=== PATIENT | female | born 1960 | race Caucasian/White ===

== ENCOUNTER 2017-06-19 06:47 | Inpatient (IN) | payer OTHER ==
[2017-06-08 10:38] LABS: HEMATOCRIT 41.7 % (37.0-47.0); MCH 30.2 pg (26.0-34.0); MCHC 33.5 g/dL (28.0-37.0); MCV 90.2 fL (80.0-100.0); MPV 8.1 fl. (7.2-11.1); RBC 4.63 mil/uL (4.20-5.00); WBC 7.9 thou/uL (4.0-11.0)
[2017-06-08 10:45] LABS: APTT 28.9 Seconds (25.0-31.3); PROTIME 9.7 Seconds (9.20-11.50)
[2017-06-08 10:48] LABS: ALBUMIN 3.9 g/dL (3.4-5.0); CALCIUM 9.1 mg/dL (8.5-10.1); CREATININE 0.8 mg/dL (0.6-1.3); POTASSIUM 3.7 mmol/L (3.5-5.1); TOTAL BILIRUBIN 0.4 mg/dL (<0.1-1.0); TOTAL PROTEIN 7.4 g/dL (6.4-8.2)
[2017-06-09 03:15] LABS: GLYCOHEMOGLOBIN (HGB A1C) 4.7 % (4.8-5.6)
[~2017-06-19] VITALS: Ht 157.5 cm; Wt 104.3 kg
[~2017-06-19 06:47] MED LIST: IBUPROFEN 800800 M1 PO; NORCO 5-325 TA1 EACH PO
[2017-06-19 07:00] VITALS: BP 157/75
[2017-06-19 13:19] VITALS: BP 141/88
--- NOTE | 2017-06-19 13:25 | NUR ---
PATIENT TRANSFERRED FROM PACU TO ROOM 114. ALERT AND ORIENTED. DENIES PAIN. O2 SAT 97% PER CONT PULSE OX. TOLERATING LIQUIDS. LUNCH ORDERED. DRESSING TO RIGHT KNEE DRY AND INTACT. SCD'S IN PLACE. TEDS TO LEFT LEG. VSS. DAUGHTER IN LAW AT BEDSIDE. EDUCATED ON FALL PREVENTION. BED ALARM SET. WILL CONTINUE TO MONITOR.
[2017-06-19 15:44] VITALS: BP 140/50
--- NOTE | 2017-06-19 16:55 | NUR ---
PATIENT REMAINS ALERT AND ORIENTED. REPORTS SLIGHT DISCOMFORT IN KNEE BUT NO PAIN, PATIENT HAD SPINAL AND NERVE BLOCK. ENCOURAGED TO TAKE OXYIR SO WE COULD STAY AHEAD OF PAIN. OXYIR 5MG GIVEN AT THIS TIME. TOLERATING MEALS. STANLEY IN PLACE WITH LIGHT YELLOW URINE. SCD'S AND ROSY IN PLACE. DRESSING TO KNEE DRY AND INTACT. BED ALARM SET. WILL CONTINUE TO MONITOR.
[2017-06-19 21:25] VITALS: BP 131/71
[2017-06-20 00:29] VITALS: BP 122/69
--- NOTE | 2017-06-20 04:34 | NUR ---
PATIENT ALERT AND ORIENTED. VITALS STABLE. DESATS WHEN SLEEPING. PLACED ON 3L OF OXYGEN, CONTINUOUS PULSE OX IN PLACE. PAIN CONTROLLED WITH PO MEDICATION. STANLEY TO DEPENDENT DRAINAGE, DRAINING LIGHT YELLOW URINE. RIGHT KNEE DRESSING C/D/I. FLUIDS INFUSING PER ORDER. DENIES NAUSEA. BED ALARM IN USE. HOURLY ROUNDS. NURSING WILL CONTINUE TO MONITOR.
[2017-06-20 04:45] LABS: HEMATOCRIT 33.3 % (37.0-47.0); HEMOGLOBIN 11.4 gm/dL (12.0-15.0)
[2017-06-20 05:14] VITALS: BP 119/71
[2017-06-20 08:31] VITALS: BP 124/62
--- NOTE | 2017-06-20 09:20 | NUR ---
RECIEVED O.T. EVAL AND TX. WILL DEFER TO P.T. AND NURSING. PLEASE ORDER FURTHER O.T. SERVICES IF NEEDED.
--- NOTE | 2017-06-20 16:00 | NUR ---
CM UNABLE TO SEE PT.TODAY. WILL SEE IN AM.
[2017-06-20 16:11] VITALS: BP 118/56
--- NOTE | 2017-06-20 16:34 | NUR ---
PATIENT REMAINS ALERT AND ORIENTED. PAIN CONTROLLED WITH OXYIR. PARTICIPTAED WITH PT. TRANSFERS AND AMBULATES WITH STANDBY ASSIST,GB, AND WALKER. VOIDING PER BSC. IV SALINE LOCKED. RA SAT 98%. TEDS AND SCD'S IN PLACE. TOLERATING MEALS. CALL LIGHT WITHIN REACH. WILL CONTINUE TO MONITIOR.
[2017-06-20 18:01] VITALS: BP 118/56
[2017-06-20 20:20] VITALS: BP 143/82
[2017-06-21 00:44] VITALS: BP 149/75
[2017-06-21 04:01] LABS: HEMATOCRIT 32.6 % (37.0-47.0); HEMOGLOBIN 11.2 gm/dL (12.0-15.0)
[2017-06-21 04:36] VITALS: BP 145/82
--- NOTE | 2017-06-21 05:37 | NUR ---
PATIENT HAS RESTED WELL THROUGHOUT THE NIGHT WITHOUT ANY ISSUES. PAIN WELL CONTROLLED. VSS ON RA. PATIENT IS UP WITH ASSIST X 1 WITH WALKER AND GAITBELT TO THE BSC. PATIENT IS URINATING ADEQUATELY. DRESSING TO RIGHT KNEE IS C/D/I, ROSY HOSE AND SCD'S IN PLACE. PATIENT INSTRUCTED TO USE CALL LIGHT WHEN NEEDING ASSISTANCE. HOURLY ROUNDS MADE. WILL CONTINUE WITH PLAN OF CARE AND NURSING TO MONITOR.
[2017-06-21 07:35] VITALS: BP 151/86
[2017-06-21] MEDS ORDERED: NEURONTIN 300300 M1 PO (08:39)
[2017-06-21] MEDS ORDERED: COLACE 100 MG100 MG PO (08:39)
--- NOTE | 2017-06-21 12:00 | NUR ---
PT.UP IN CHAIR. SHE WAS ALERT AND ORIENTED. SHE SAID SHE LIVES ALONE. HER FAMILY IS SUPPORTIVE. HER MOM WILL BE COMING TO STAY WITH HER FOR THE FIRST FEW DAYS. SHE IS HOPEFUL SHE WILL STAY THE FULL 2 WEEKS WITH HER. HER SON WORKS CLOSE TO HER AND SHE KNOWS HE WILL CHECK ON HER,ALSO. SHE WILL NEED A WALKER FOR HOME. 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 DISCUSSED HOME HEALTH VS.OUTPT.THERAPY. SHE WOULD LIKE TO DO HH INITIALLY. SHE CHOSE [facility] FOR HH. REFERRAL MADE TO [facility] AND THEY WILL ACCEPT HER. PT.SAID SHE WILL NOT HAVE HELP AT HOME UNTIL TOMORROW. PLAN ON DISCHARGE TOMORROW.
[2017-06-21 12:41] VITALS: BP 153/77
--- NOTE | 2017-06-21 14:49 | NUR ---
Agree with student nurse, Jannet Sanchez's documentation
[2017-06-21 15:43] VITALS: BP 145/81
--- NOTE | 2017-06-21 17:24 | NUR ---
PATIENT REMAINS ALERT AND ORIENTED. DENIES PAIN. PARTICIPATED WITH PT. SHOWERED THIS AM. TRANSFERS AND AMBULATES WITH ASSIST OF 1,GB,WALKER. DRESSING DRY AND INTACT. PLANS TO DC TOMORROW WHEN SISTER CAN STAY WITH HER. PAIN CONTROLLED WITH OXYIR. UP TO CHAIR. VOIDING PER BSC. BED ALARM IN USE. CALL LIGHT WITHIN REACH. WILL CONTINUE TO MONITOR.
[2017-06-21 20:45] VITALS: BP 136/79
--- NOTE | 2017-06-22 04:55 | NUR ---
PATIENT HAS REMAINED ALERT AND ORIENTED X 4 THROUGHOUT THE SHIFT AND RESTING QUIETLY ON HOURLY ROUNDS. DRESSING CLEAN AND DRY RIGHT KNEE. MEDICATED FOR PAIN X 1 TO GOOD EFFECT. UP TO BR TO VOID. PASSING GAS. MILK OF MAGNESIA AT BEDSIDE. VITAL SIGNS STABLE. CONTINUE TO MONITOR.
[2017-06-22 06:00] VITALS: BP 114/70
[2017-06-22 08:15] VITALS: BP 135/78
--- NOTE | 2017-06-22 10:27 | NUR ---
CALLED IN PRESCRIPTION FOR ELIQUIS WRITTEN TO [facility] [phone]. WILL CALL BACK IN ONE HR.FOR COPAY.
--- NOTE | 2017-06-22 12:05 | NUR ---
COPAY FOR SHELBI PER PHARMACY IS $25. INFORMED PT. SHE IS PACKING . FAMILY HERE. THERAPY DISPENSED HER WALKER AND IN ROOM. INFORMED HER NURSE WAS WORKING ON HER DISCHARGE INSTRUCTIONS.
[2017-06-22 12:07] VITALS: BP 118/56
[2017-06-22] MEDS ORDERED: ELIQUIS2.5 MG PO (12:13)
[2017-06-22] MEDS ORDERED: ASPIRIN325 PO (12:14)
[2017-06-22] MEDS ORDERED: IBUPROFEN 800800 M1 PO (12:24)
[2017-06-22] MEDS ORDERED: OXYCODONE HCL 55 MG PO (12:26)
--- NOTE | 2017-06-22 12:31 | S ---
[address] [address] SURGICAL PATH RPT PROCEDURE Name: LIZY MARCOS Room: [address] IN M.R.#: [id number] Admission: 06/19/17 Date of : 60 Discharge: Report #: [id number] Path Case #: [id number] PATHOLOGY REPORT COLLECTION DATE: 06/19/2017 RECEIVED DATE: 06/19/2017 SUBMITTING PHYS: Dr. Christofer Lynn OTHER PHYS: Dr. Alexis Huston SPECIMEN(S) RECEIVED: A.R knee bone * * * * * * * * * * * * FINAL DIAGNOSIS: Bone right knee, total knee replacement: - Benign meniscus and synovium and benign bone and cartilage with degenerative changes. (DEVYN:db; 06/21/2017) PATHOLOGIST: Adilson Loo M.D. REPORT ELECTRONICALLY SIGNED BY: Adilson Loo M.D. DATE/TIME: 06/22/2017 12:30 * * * * * * * * * * * * GROSS PATHOLOGY: Received in formalin labeled "Lizy Marcos, bone right knee," are multiple segments of bone, including tibial plateau, measuring 13.3 x 10.5 x 1.9 cm in aggregate dimensions admixed with soft tissue; meniscus is present. Upon extensive sectioning, eburnation of the articular surfaces is not grossly evident. Hand Cloth Folder sections of bone and soft tissue are submitted in cassette A1, following decalcification. (DAC; 06/20/2017) CLINICAL HISTORY: Right knee degenerative joint disease INITIAL CPT CODE(S): A; 45037, 26181 Professional services performed by [facility] at [facility] [address] [place] [address] Technical services performed by [facility] at [address] [place] [address], [facility] [address], [place] [address]. [address] [address] SURGICAL PATH RPT PROCEDURE Name: LIZY MARCOS Room: [address] IN [facility].#: [id number] Admission: 06/19/17 Date of : 60 Discharge: Report #: [id number] Path Case #: [id number] [facility] [address] [address] PHONE: [phone] DIRECTOR: Micheal Black M.D. * * * END OF REPORT * * *
--- NOTE | 2017-06-22 12:42 | NUR ---
PATIENT LEFT UNIT BY WHEELCHAIR WITH NURSING STAFF AT 1240. IV DC'D. EDUCATED PATIENT AND FAMILY ON DISCHARGE INSTRUCTIONS AND NEW MED SCRIPTS. PATIENT AND FAMILY VERBALIZED UNDERSTANDING. ALL BELONGINGS LEFT WITH PATIENT.
[2017-06-22 12:45] VITALS: BP 118/56
--- NOTE | 2017-07-24 16:45 | OP ---
[address] [address] OPERATIVE REPORT Name: KELLIE,SOO L Room: [address]#: [id number] Admission: 06/19/17 Attend Phys: Yecenia Jones Discharge: 06/22/17 Date of : 60 Report #: [id number] THIS REPORT FOR: //name// CC: NO PCP Christofer Huston DICTATED BY: Santiago Chandler DO DATE OF SERVICE: 06/19/2017 Dr. Santiago Chandler dictating operative report on behalf of Dr. Christofer Lynn. PREOPERATIVE DIAGNOSIS: Right knee degenerative joint disease. POSTOPERATIVE DIAGNOSES: Right knee degenerative joint disease. PROCEDURE: Right total knee arthroplasty utilizing [employer]ill[employer].comguard knee system with the following components: 1. Right 60 mm CR femoral component. 2. Right 71 mm fixed cruciate tibial plate. 3. A 10 mm tibial bearing. 4. A 28 mm series A thin round patella. SURGEON: Christofer Lynn DO. MOTORCYCLE SUBASSEMBLER: Santiago Chandler DO and Alberto Plummer DO. ANESTHESIA: Spinal with light sedation. ESTIMATED BLOOD LOSS: 175 mL. ANTIBIOTICS: 2 grams Ancef IV preoperatively. SPECIMENS: None. COMPLICATIONS: None. DRAINS: None. DISPOSITION: Stable to PACU and will be admitted to the hospital for standard postoperative care. INDICATION FOR PROCEDURE: The patient is a pleasant 57-year-old female who was seen the [facility] with complaints of chronic right knee pain. On radiographs, she was found to have degenerative joint disease, [place] [address] OPERATIVE REPORT Name: SOO HOPKINS Room: [address]#: [id number] Admission: 06/19/17 Attend Phys: Yecenia Jones Discharge: 06/22/17 Date of : 60 Report #: [id number] the medial compartment with subchondral sclerosis, osteophytic lipping noted. Her right knee pain was refractory to conservative measures consisting of oral anti-inflammatories, activity modifications, attempted weight loss and multiple corticosteroid injections for much greater than 6 months' duration. The patient's pain was impacting her quality of life preventing her from performing activities that she wishes to. Therefore, she was recommended for a right total knee arthroplasty. Risks, benefits, complications, indications, and alternative treatments were discussed and the patient wished to proceed with surgery today. DESCRIPTION OF PROCEDURE: The patient was seen in preoperative holding area, correct operative site, right knee was initialed. The patient was taken back to operating suite and placed in the supine position on the operating table after a standard spinal was performed by the anesthesia. The patient was given light sedation throughout the procedure. The right lower extremity was prepped and draped in typical fashion. Surgery began with a timeout, identifying correct patient and correct procedure, preoperative antibiotics, correct operative site and the performing surgeon. A standard midline incision was made directly overlying the anterior aspect of the right knee. Skin and subcutaneous tissues were sharply incised with a 20 blade scalpel down to the level of the prepatellar fascia and the quadriceps tendon, which were identified and dissected out with full-thickness skin flaps more so medial than lateral. Next, our standard medial parapatellar arthrotomy was performed with a new 10 blade knife. Proximal medial tibia, we performed both a medial and to a lesser extent lateral subperiosteal dissection for better exposure of the tibia and anterior third of the medial and lateral menisci were excised this point. Patella was everted. Infrapatellar fat pad was debrided and lateral aspect of the tibia was also debrided and fat was excised for better visualization. ACL was removed at this point. Intramedullary entry drill was inserted in the femur in typical fashion followed by the intramedullary distal femur cutting guide. The cutting guide was pinned into place and we resected roughly 9 mm of distal femoral bone using the oscillating saw. Bony debris was removed. Next, attention was turned to making our proximal tibia cut. I used an extramedullary tibial guide. It was aligned with the medial third of the tibial tubercle. The tibial crest in the center of the talus and the second metatarsal slope was found to be rather appropriate and a tibial cutting block was pinned into place and then shifted up 2 mm for a total resection of 8 mm. A proximal tibia cut was performed using oscillating saw. All bony debris was removed. Knee was taken out to extension. A 10 mm spacer block was inserted and found to achieve full extension and rather stable with both varus and valgus and symmetric. Next, attention was turned to finishing our femoral cuts. AP sizer was used to measure roughly for a 60 mm femoral component with 3 degrees of external rotation. Holes were drilled in our AP sizer and our four-in-one distal femoral cutting block was impacted into place. Next, we performed our anterior and posterior femoral cuts as well as our anterior and posterior chamfer cuts. All bony debris were removed. Both medial and lateral menisci [address] [address] OPERATIVE REPORT Name: SOO HOPKINS Room: [address] IN [facility]#: [id number] Admission: 06/19/17 Attend Phys: Yecenia Jones Discharge: 06/22/17 Date of : 60 Report #: [id number] were excised using the electrocautery. Next, our tibia was sized to roughly 71 mm tibial trial tray, which was pinned into place after using the removal drop roxi for appropriate alignment. Next, our trial femur was impacted into place and a 10 mm polyethylene spacer was inserted. Knee was taken through range of motion and felt to be stable to varus and valgus stress and rather stable with anterior and posterior drawer testing at 90 degrees of flexion. The patient had full range of motion with extension and flexion. Attention was turned to the patella. Using the Familiar reaming system, patella was resurfaced to the appropriate thickness excising all degenerative cartilage and it was sized to roughly a 28 mm round patellar component, which was drilled using the drill guide and placed into appropriate position. Knee was taken through range of motion. Patella seemed to be tracking appropriately. The trial patella was then removed. At this point, the femur was drilled on the condylar surfaces and tibia was reamed and a cruciate punch performed on the tibia trial. Next, all trial components were removed and bony surfaces were irrigated sufficiently and the final components were cemented into place starting with the tibia and all excess cement was removed after impacting the final tibial tray into place, then followed in a similar fashion by the femur, which was impacted into place. All bony excess was removed. The patella was also cemented into place and held with the patellar clamp. A final 10 mm polyethylene spacer was then inserted and locked into place using the locking clip. Patella was then flipped back to its st. croix position and the knee was positioned at roughly 90 degrees of flexion. A thorough irrigation was then performed. A capsular layer was then closed using multiple #1 Vicryl sutures in a evifov-ka-ogwce fashion followed by a running #1 Stratafix barbed suture. Subcutaneous tissues were irrigated and closed in a simple inverted fashion with 2-0 Monocryl suture followed by running subcuticular stitch using a 3-0 Stratafix followed by Dermabond skin glue. Standard dressings were applied consisting of Mepilex and a thigh-high ROSY hose. The patient was weaned from general anesthetic, transferred in stable condition to PACU. All sponge and needle counts were correct x 2. Standard PQRS postoperative care will be implemented consisting of appropriate anticoagulation for DVT prophylaxis as well as 2 postoperative doses of antibiotics within 24 hours and physical therapy will be started for mobilization. <ELECTRONICALLY SIGNED> By: Christofer Lynn DO 07/24/17 [id number] Lynn DO /[email or web address]
== END 2017-06-22 12:46 | disposition home health service (06) | DRG 470 ==
LOC: M.TBA 06:47 → M.ORTHSURG 06:47
PROVIDERS: Orthopaedic Surgery; ADMIT Internal Medicine
PROC: 0SRC0J9 Replacement of Right Knee Joint with Synthetic Substitute, Cemented, Open Approach (ICD-10-PCS; principal; 2017-06-19)
DX: M17.11 Unilateral primary osteoarthritis, right knee (principal); H54.40 Blindness, one eye, unspecified eye; Z90.49 Acquired absence of other specified parts of digestive tract; Z98.1 Arthrodesis status; Z28.21 Immunization not carried out because of patient refusal; Z82.49 Family history of ischemic heart disease and other diseases of the circulatory system; Z80.8 Family history of malignant neoplasm of other organs or systems